=== PATIENT | male | born 1950 | race Hispanic/Latino ===

== ENCOUNTER 2019-02-16 11:35 | Outpatient (CLI) | payer MEDICARE ==
--- NOTE | 2019-02-16 14:16 | XRay Report ---
Left hand 3 views INDICATION / CLINICAL INFORMATION: DOG BITE/PAIN/SWELLING. COMPARISON: None available. FINDINGS: BONES/JOINT(S): No acute fracture or subluxation. 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 SOFT TISSUES: No radiopaque foreign body or soft tissue gas. ADDITIONAL FINDINGS: None. Signer Name: Dick Patricio MD Signed: 02/16/2019 1:11 PM Workstation Name: [id number]
== END 2019-02-16 11:36 | disposition home or self-care (01) ==
LOC: SPVIMAG 11:35
PROVIDERS: ATTEND Internal Medicine
DX: S61.452A Open bite of left hand, initial encounter (principal); X58.XXXA Exposure to other specified factors, initial encounter; Y93.89 Activity, other specified; Y92.89 Other specified places as the place of occurrence of the external cause; Y99.8 Other external cause status